=== PATIENT | female | born 1980 | race Caucasian/White ===

== ENCOUNTER 2022-06-04 11:48 | Emergency (ER) | payer MEDICAID, SELFPAY ==
--- NOTE | 2022-06-04 12:00 | USR_ITS ---
PROCEDURE INFORMATION: Exam: US , Limited Exam date and time: 06/04/2022 12:29 PM Age: 41 years old Clinical indication: Lmp or gestational age (in weeks): 8 weeks; Antepartum complications; Bleeding; ; Additional info: Vaginal bleeding in , confirm iup LABS AND CLINICAL REPORTS: Serum Choriogonadotropin (HCG): 0 mIU/mL Last menstrual period start date: 03/20/2022 Gestational age (Established): 10 w 6 d Estimated due date (Established): 12/25/2022 TECHNIQUE: Imaging protocol: Real-time ultrasound of the maternal uterus with image documentation. Exam focused on the clinical indication. COMPARISON: US OB limited [id number] 05/28/2017 10:18 AM FINDINGS: Gestation: There is intrauterine gestational sac with a pole and no yolk sac. heart rate: The heart rate is not documented. This patient's gestational age should be associated visible Cardiac activity. This finding is suspicious for demise. Follow-up exam is recommended. presentation: Vertex in Amniotic fluid: Amniotic fluid volume is normal. BIOMETRY: Gestational age (AUA): 9 w 0 d BRUNO Clinical gestational age 10 weeks 6 days BRUNO 12/25/2022 The uterus is unremarkable. The right ovary does not show focal abnormality it measures 4.4 cm x 2.9 cm x 2.1 cm x 2.2 cm me normal vascular flow is seen. The left ovary measures 2.2 cm by 1.8 cm x 3 cm it has normal vascular flow. In US/US OB >= 14 weeks fetus [id number] IMPRESSION: 1. Intrauterine gestational sac with a pole. 2. Negative for heart activity possible demise. 3. Gestational age 9 weeks BRUNO 01/07/2023 4. Normal bilateral uterus and ovaries.
--- NOTE | 2022-06-04 12:29 | W.ED.GENADLT ---
HPI - General Adult General: Chief complaint: Vaginal Bleeding Stated complaint: possible miscarriage Time Seen by Provider: 06/04/22 11:58 History of Present Illness: 41-year-old female presenting today with vaginal bleeding. Patient is a at 10 weeks. She notes that she woke up this morning with vaginal bleeding and spotting. As well as some cramping. Bleeding is only minor. She is O- blood type. Has not had a confirmatory ultrasound at this point. She denies fevers or chills. Denies nausea or vomiting. She denies diarrhea. Denies dysuria or polyuria. She has no other complaints or concerns Review of Systems General: Reports: 10 or more systems reviewed and unremarkable except in HPI and below [facility] ED Female Reproductive History: Date of last menstrual period: 03/22/22 Physical Exam Const: COMMON NORMALS: no acute distress, patient oriented x3 and alert GENERAL APPEARANCE: cooperative ORIENTATION/CONSCIOUSNESS: Yes awake, Yes oriented to person, Yes oriented to place and Yes oriented to time HENMT: COMMON NORMALS: normocephalic, atraumatic, external ears normal, Normal external nose present and moist oral mucous membranes HEAD & SCALP: normal to inspection, normocephalic and atraumatic NOSE: Normal external nose present GENERAL EAR: hearing grossly impaired EXTERNAL EAR: Yes external ears normal Eye: COMMON NORMALS: Equal, round and reactive pupils present, EOMs intact bilaterally, conjunctivae normal and no scleral icterus GENERAL EYE: appearance normal, both eyes and all related structures EYELID: eyelids normal CONJUNCTIVA: Yes conjunctivae normal SCLERA: sclerae normal PUPIL: Yes Equal, round and reactive pupils present Neck/C-Spine: COMMON NORMALS: full ROM, supple and no JVD GENERAL: Yes normal visual inspection Lymph: LYMPHATIC: no lymphadenopathy noted and no lymphedema noted Chest: COMMONS NORMALS: normal inspection of the chest Resp: COMMON NORMALS: normal respiratory effort, No retractions and No use of accessory muscles Cardio: COMMON NORMALS: no JVD, regular rate and regular rhythm RATE: regular rate RHYTHM: regular rhythm GI: COMMON NORMALS: Normal to inspection, nondistended, normoactive bowel sounds present : COMMON NORMALS: Yes no CVA tenderness BLADDER/KIDNEY EXAM: Yes no CVA tenderness Back/Pelvis: COMMON NORMALS: no CVA tenderness and thoracic and lumbar spine normal to inspection Extremity: COMMON NORMALS: normal to inspection, full ROM and capillary refill normal GENERAL: Yes normal exam except as noted Neuro: COMMON NORMALS: patient oriented x3, CN's II-XII intact bilaterally, moves all extremities, no focal motor deficits, no sensory deficits noted and gait normal SENSORIUM/ORIENTATION: Yes alert, Yes oriented to person, Yes oriented to place and Yes oriented to time Psych: COMMON NORMALS: mental status grossly normal, Normal thought process present, cooperative and normal affect THOUGHT PROCESS: Normal thought process present Skin: COMMON NORMALS: no rashes or lesions noted and no wounds GENERAL SKIN EXAM: no rashes or lesions noted [facility] Adult Medical Decision Making 41-year-old female presenting today with vaginal bleeding. Bedside ultrasound with evidence of intrauterine demise. At approximately 8 weeks. Patient was given expectant instructions. RhoGAM was given. Labs otherwise unremarkable. Patient was given strict return precautions and recommended routine outpatient follow-up. Lab Data : 06/04/22 12:05 06/04/22 12:05 Laboratory Results WBC 8.3 10^3/uL (4.0-10.0) 06/04/22 12:05 RBC 5.07 10^6/uL (4.1-5.3) 06/04/22 12:05 Hgb 15.3 g/dL (11.5-15.3) 06/04/22 12:05 Hct 45.7 % (37.0-47.0) 06/04/22 12:05 MCV 90.1 fl (81-99) 06/04/22 12:05 MCH 30.2 pg (28.0-34.0) 06/04/22 12:05 MCHC 33.5 g/dL (30.0-36.0) 06/04/22 12:05 RDW 12.3 % (12.1-15.1) 06/04/22 12:05 Plt Count 227 10^3/cmm (130-400) 06/04/22 12:05 MPV 10.4 fL (7.4-10.4) 06/04/22 12:05 Neut % (Auto) 69.5 % 06/04/22 12:05 Lymph % (Auto) 19.9 % 06/04/22 12:05 [place] % (Auto) 6.2 % 06/04/22 12:05 Eos % (Auto) 3.1 % 06/04/22 12:05 Baso % (Auto) 0.8 % 06/04/22 12:05 Neut # (Auto) 5.76 10^3/uL (1.8-7.7) 06/04/22 12:05 Lymph # (Auto) 1.7 10^3/uL (0.8-4.8) 06/04/22 12:05 [place] # (Auto) 0.5 10^3/uL (0.2-0.9) 06/04/22 12:05 Eos # (Auto) 0.3 10^3/uL (0.0-0.8) 06/04/22 12:05 Baso # (Auto) 0.1 10^3/uL (0.0-0.1) 06/04/22 12:05 Nucleated RBC % (auto) 0 % 06/04/22 12:05 Nucleated RBCs # 0.0 /100WBC 06/04/22 12:05 Sodium 137 mmol/L (136-145) 06/04/22 12:05 Potassium 4.0 mmol/L (3.5-5.1) 06/04/22 12:05 Chloride 103 mmol/L (98-107) 06/04/22 12:05 Carbon Dioxide 24 mmol/L (22-29) 06/04/22 12:05 Anion Gap 14.0 (5-19) 06/04/22 12:05 BUN 10 mg/dL (6-20) 06/04/22 12:05 Creatinine 0.5 mg/dL (0.5-0.9) 06/04/22 12:05 GFR Calculation 136.6 mL/min (90-130) H 06/04/22 12:05 Glucose 85 mg/dL (65-115) 06/04/22 12:05 Calculated Osmolality 282 mOsm/kg (285-295) L 06/04/22 12:05 Calcium 9.4 mg/dL (8.5-10.5) 06/04/22 12:05 Total Bilirubin 0.3 mg/dL (0.15-1.2) 06/04/22 12:05 AST 16 U/L (0-32) 06/04/22 12:05 ALT 15 U/L (0-33) 06/04/22 12:05 Alkaline Phosphatase 90 U/L (35-105) 06/04/22 12:05 Total Protein 7.2 g/dL (6.6-8.7) 06/04/22 12:05 Albumin 3.9 g/dL (3.5-5.2) 06/04/22 12:05 Globulin 3.3 g/dL (1.3-4.6) 06/04/22 12:05 Blood Type O Negative 06/04/22 12:05 Rho(D) Type Negative 06/04/22 12:05 Antibody Screen Negative 06/04/22 12:05 Discharge Plan Discharge Patient Disposition: Home Clinical Impression: Missed , Vaginal bleeding Condition: Stable Discharge Orders: Discharge ED (Routine); Ordered 06/04/22 Ordered By: Mekhi Billings Patient Instructions: Miscarriage (ED) Coding Level of Care Code ED Blanking Press Operator for Chg Fwd Exam Comprehensive
[2022-06-04 12:33] LABS: Basophils # 0.1 10^3/uL (0.0-0.1); Basophils % 0.8 %; Eosinophils # 0.3 10^3/uL (0.0-0.8); Eosinophils % 3.1 %; Hematocrit 45.7 % (37.0-47.0); Hemoglobin 15.3 g/dL (11.5-15.3); Lymphocytes # 1.7 10^3/uL (0.8-4.8); Lymphocytes % 19.9 %; Mean Corpuscular HGB Conc 33.5 g/dL (30.0-36.0); Mean Corpuscular Hemoglobin 30.2 pg (28.0-34.0); Mean Corpuscular Volume 90.1 fl (81-99); Mean Platelet Volume 10.4 fL (7.4-10.4); Monocytes # 0.5 10^3/uL (0.2-0.9); Monocytes % 6.2 %; Neutrophils # 5.76 10^3/uL (1.8-7.7); Neutrophils % 69.5 %; Nucleated Red Blood Cells % 0 %; Platelet Count 227 10^3/cmm (130-400); Red Blood Count 5.07 10^6/uL (4.1-5.3); Red Cell Distribution Width 12.3 % (12.1-15.1); White Blood Count 8.3 10^3/uL (4.0-10.0)
[2022-06-04 12:56] LABS: Alanine Aminotransferase 15 U/L (0-33); Albumin Level 3.9 g/dL (3.5-5.2); Alkaline Phosphatase 90 U/L (35-105); Aspartate Amino Transferase 16 U/L (0-32); Blood Urea Nitrogen 10 mg/dL (6-20); Calcium 9.4 mg/dL (8.5-10.5); Carbon Dioxide 24 mmol/L (22-29); Chloride 103 mmol/L (98-107); Globulin 3.3 g/dL (1.3-4.6); Glomerular Filtration Rate 136.6 mL/min (90-130); Glucose 85 mg/dL (65-115); Osmolality Calculated 282 mOsm/kg (285-295); Sodium 137 mmol/L (136-145); Total Bilirubin 0.3 mg/dL (0.15-1.2); Total Protein 7.2 g/dL (6.6-8.7)
[2022-06-04 13:33] VITALS: BP 99/68; PULSE 82; RESP 16; TEMP 36.6; O2SAT 100
[2022-06-04 13:55] VITALS: BP 100/64; PULSE 75; RESP 16; O2SAT 99
--- NOTE | 2022-06-05 15:42 | DCPLANNER ---
Addendum entered by Linda Sorenson 07/06/22 07:36: hedge fund manager received the following messages from [facility] about follow up appointment: Tori Paris completed item. On Sun 8:36a Jun 07, 2022 Tori Sanders Wrote To: Tori Sanders NO VM SET UP On Sun 10:29a Jun 06, 2022 Tori Sanders Wrote To: Tori Sanders I tried to call PT today, voicemail is not set up, I will try to call her again later today. On Sun:29a Jun 06, 2022 Apple Rosenthal Wrote To: Tori Sanders Per Dr Praada , patient needs repeat US and HCG quant. Per Richelle in [place], she can see patient on 06/09/22 @ either 7:30am or 2:30pm. Per Dr Parada, this is okay, but patient needs an HCG quant today and another HCG quant on 06/09/22. Please call patient and schedule//JS Original Note: hedge fund manager had message to schedule a follow up appointment for patient with [facility]. hedge fund manager sent patients information to the front office staff at [facility]. Patients information will be printed and reviewed. Clinic will call patient with appointment information.
== END 2022-06-04 13:59 | disposition home or self-care (01) ==
PROVIDERS: Emergency Provider Emergency Medicine
DX: O02.1 Missed abortion (principal); O46.91 Antepartum hemorrhage, unspecified, first trimester; Z3A.10 10 weeks gestation of pregnancy
CPT/HCPCS: 36430; 76805; 80053; 84702; 85025; 86850; 86900; 90384; 96372; 99284